=== PATIENT | male | born 1955 | race Caucasian/White ===

== ENCOUNTER → 2022-08-26 | Outpatient (REF) | payer OTHER, MEDICARE ==
[~2022-08-26] MED LIST: BRIM0.2S13 OD; HYDR-3490 PO; LOSA50TA28 PO; METO1TAB87 PO; TIMO5DRO5 OP; TRAM50TA2 PO; XALA0.007 OU
[2022-08-26 16:06] LABS: APPEARANCE, URINE CLEAR (CLEAR); BACTERIA, URINE AUTO NEGATIVE (NEGATIVE); BILIRUBIN, URINE AUTO NEGATIVE (NEGATIVE); BLOOD, URINE BLOOD NEGATIVE (NEGATIVE); COLOR, URINE YELLOW (YELLOW); GLUCOSE, URINE (UA) AUTO NEGATIVE (NEGATIVE); KETONE, URINE AUTO NEGATIVE (NEGATIVE); LEUKOCYTE ESTERASE, URINE AUTO NEGATIVE (NEGATIVE); MUCUS, URINE SMALL (NEGATIVE); NITRITE, URINE AUTO NEGATIVE (NEGATIVE); PROTEIN, URINE AUTO 1+ mg/dL (NEGATIVE); RBC, URINE AUTO 1 /HPF (0-3); SPECIFIC GRAVITY URINE AUTO 1.015 (1.002-1.035); SQUAMOUS EPITHELIAL CELL UR AU 0 /HPF (0-6); UROBILINOGEN, URINE AUTO 0.2 mg/dL (0.0-2.0); WBC, URINE AUTO 1 /HPF (0-3)
== END ==
LOC: M SMT 15:20
PROVIDERS: ATTEND Urology
DX: R39.198 Other difficulties with micturition (principal)